=== PATIENT | female | born 1955 | race Caucasian/White ===

== ENCOUNTER 2018-08-12 05:55 | Inpatient (IN) | payer BC, MEDICARE ==
[2018-08-08 10:45] LABS: Basophils # (auto) 0.1 uL; Basophils % (auto) 1.4 % (0.0-2.0); Eosinophils # (auto) 0.1 uL; Eosinophils % (auto) 2.7 % (0.0-7.0); Hematocrit 41.8 % (36.0-46.0); Hemoglobin 14.1 g/dL (12.2-16.2); Lymphocytes # (auto) 1.7 uL; Lymphocytes % (auto) 33.1 % (10.0-50.0); Mean Corpuscular Hemoglobin 30.2 pg (28.0-32.0); Mean Corpuscular Hgb Conc. 33.7 g/dL (32.0-36.0); Mean Corpuscular Volume 89.5 fL (80.0-100.0); Monocytes # (auto) 0.4 uL; Monocytes % (auto) 7.6 % (0.0-12.0); Neutrophils # (auto) 2.8 uL; Neutrophils % (auto) 55.2 % (37.0-80.0); Platelet Count (auto) 244 10^3/uL (140-450); Red Blood Cells 4.67 10^6/uL (4.0-5.20)
[2018-08-08 10:49] LABS: Urine Bacteria FEW /hpf (None Seen); Urine Blood Negative /uL (Negative); Urine Specific Gravity 1.009 (1.001-1.035); Urine WBC 3 /hpf (0 - 5)
[2018-08-08 11:11] LABS: INR 0.92 (0.9-1.15); Partial Thromboplastin Time 28.2 sec (23.78-33.04); Prothrombin Time 9.9 sec (9.27-12.13)
[2018-08-08 11:47] LABS: Potassium 4.5 mmol/L (3.5-5.1)
[2018-08-08 12:00] LABS: Albumin 3.7 g/dL (3.4-5.0); BUN/Creatinine Ratio 20.5; Bilirubin, Total 0.3 mg/dL (0.2-1.0); Calcium 9.1 mg/dL (8.5-10.1); Total Protein 7.6 g/dL (6.4-8.2)
[~2018-08-12] VITALS: Ht 165.1 cm; Wt 101.6 kg
[2018-08-12] MEDS ORDERED: ceFAZolin 1GM/50ML 100 ML IV ONE (06:48)
[2018-08-12] MEDS ORDERED: TETRACAINE 1% INJ 2 ML VIAL IJ ONE ×2 (07:05→07:27)
[2018-08-12] MEDS ORDERED: LIDOCAINE 1% HCL (LOCAL ANESTH.) INJ 20ML MDV ONE (07:05)
[2018-08-12] MEDS ORDERED: DOXAPRAM HCL 20 MG/ML 20ML VIAL INJ IV ONE (07:05)
[2018-08-12] MEDS ORDERED: SUCCINYLCHOLINE CHLORIDE 20 MG/ML 10ML VIAL IV ONE (07:05)
[2018-08-12] MEDS ORDERED: MIDAZOLAM HCL 1MG/1ML-2 ML VIAL ONE ×2 (07:08→07:47)
[2018-08-12] MEDS ORDERED: MORPHINE SULF(PF) 0.5MG/ML 10ML VIAL ONE ×2 (07:08→07:12)
[2018-08-12] MEDS ORDERED: PROPOFOL 10 MG/ML 20 ML IV ONE ×3 (07:09→09:42)
[2018-08-12] MEDS ORDERED: ONDANSETRON HCL 4 MG/2 ML VIAL ONE (07:09)
[2018-08-12] MEDS ORDERED: SODIUM CHLORIDE LOCK 50 ML ONE (07:09)
[2018-08-12] MEDS ORDERED: BUPIVACAINE 0.25% INJ 50ML VIAL ONE (07:11)
[2018-08-12] MEDS ORDERED: KETOROLAC TROMETH 30 MG/ML 1ML VIAL ONE (07:13)
[2018-08-12] MEDS ORDERED: fentaNYL CITRATE 0 ML ONE (07:18)
[2018-08-12] MEDS ORDERED: fentaNYL CITRATE 100 MCG/2 ML VL ONE (07:19)
[2018-08-12] MEDS ORDERED: HYDROmorphone HCL 2 MG/ML VL IV PRN (08:45)
[2018-08-12] MEDS ORDERED: KETOROLAC TROMETH 30 MG/ML 1ML VIAL IV ONE (08:45)
[2018-08-12] MEDS ORDERED: METOCLOPRAMIDE HCL 5MG/ml INJ 2ml VIAL IV ONE (08:45)
[2018-08-12] MEDS ORDERED: NITROGLYCERIN 5MG/ML 10ML VIAL IV ONE (09:14)
[2018-08-12] MEDS ORDERED: TEMAZEPAM 15 MG CAP PO PRN (11:00)
[2018-08-12] MEDS ORDERED: ACETAMINOPHEN 325 MG TAB PO PRN (11:00)
[2018-08-12] MEDS ORDERED: LIDOCAINE W/ EPINEPHRINE 2% INJ 20ML VIAL ONE (11:02)
[2018-08-12] MEDS ORDERED: BUPIVACAINE HCL 50 ML ONE (11:02)
[2018-08-12] MEDS ORDERED: ENOXAPARIN SOD 40 MG/0.4 ML SYRINGE SC ONE (11:15)
[2018-08-12] MEDS: ceFAZolin 1GM/50ML 50 ML IV SCH ×3 (14:13→23:10)
[2018-08-12] MEDS: SODIUM CHLOR 0.9% PF (SALINE LOCK) 10ML VIAL/SYR IV SCH ×2 (14:30→21:41)
[2018-08-12] MEDS: HYDROmorphone HCL 2 MG/ML VL IV PRN ×2 (15:10→21:42)
[2018-08-12] MEDS: LACTATED RINGER'S 1,000 ML IV SCH (15:42)
[2018-08-12 17:17] VITALS: BP 112/63
[2018-08-12] MEDS: HYDROcodone-ACET 10/325MG TAB PO PRN (19:21)
[2018-08-12 20:00] VITALS: BP 125/65
[2018-08-12] MEDS: DOCUSATE SOD 100 MG CAP PO SCH (21:41)
[2018-08-12] MEDS: oxyCODONE ER 10 MG TAB PO SCH (21:41)
[2018-08-12 21:44] VITALS: BP 125/65
[2018-08-13] MEDS: HYDROmorphone HCL 2 MG/ML VL IV PRN ×6 (01:48→19:37)
[2018-08-13 04:47] VITALS: BP_SYST 109; BP_SYST 110; BP_DIAS 57; BP_DIAS 67
[2018-08-13] MEDS: SODIUM CHLOR 0.9% PF (SALINE LOCK) 10ML VIAL/SYR IV SCH ×3 (06:00→21:43)
[2018-08-13 06:16] LABS: Hematocrit 38.6 % (36.0-46.0); Hemoglobin 12.9 g/dL (12.2-16.2)
[2018-08-13] MEDS: LACTATED RINGER'S 1,000 ML IV SCH (06:58)
[2018-08-13 09:00] VITALS: BP 114/62
[2018-08-13] MEDS: ONDANSETRON HCL 4 MG/2 ML VIAL IV PRN ×2 (09:07→19:38)
[2018-08-13] MEDS: oxyCODONE ER 10 MG TAB PO SCH ×2 (09:33→21:43)
[2018-08-13] MEDS: ENOXAPARIN SOD 40 MG/0.4 ML SYRINGE SC SCH (09:33)
[2018-08-13] MEDS: DOCUSATE SOD 100 MG CAP PO SCH ×2 (09:34→21:43)
[2018-08-13 13:00] VITALS: BP 128/53
[2018-08-13 17:00] VITALS: BP 135/65
[2018-08-13 22:00] VITALS: BP 112/65
[2018-08-14] MEDS: HYDROmorphone HCL 2 MG/ML VL IV PRN ×2 (00:18→08:52)
[2018-08-14] MEDS: ONDANSETRON HCL 4 MG/2 ML VIAL IV PRN ×2 (00:18→08:52)
[2018-08-14] MEDS: LACTATED RINGER'S 1,000 ML IV SCH (02:50)
[2018-08-14 04:57] VITALS: BP 122/63
[2018-08-14] MEDS: SODIUM CHLOR 0.9% PF (SALINE LOCK) 10ML VIAL/SYR IV SCH ×2 (06:09→14:07)
[2018-08-14] MEDS: HYDROcodone-ACET 10/325MG TAB PO PRN (06:37)
[2018-08-14 09:00] VITALS: BP 154/65
[2018-08-14 09:14] LABS: Hemoglobin 11.7 g/dL (12.2-16.2)
[2018-08-14] MEDS ORDERED: HYDROmorphone HCL 2 MG/ML VL IV PRN (09:30)
[2018-08-14] MEDS: ENOXAPARIN SOD 40 MG/0.4 ML SYRINGE SC SCH (10:08)
[2018-08-14] MEDS: DOCUSATE SOD 100 MG CAP PO SCH (10:08)
[2018-08-14] MEDS: oxyCODONE ER 10 MG TAB PO SCH (10:08)
[2018-08-14 13:00] VITALS: BP 117/72
[2018-08-14 16:00] VITALS: BP 117/72
== END 2018-08-14 17:19 | disposition home health service (06) | DRG 470 ==
LOC: SUR 05:55 → WEST WING 05:56
PROVIDERS: ADMIT Orthopaedic Surgery; ATTEND Internal Medicine
PROC: 0MBN0ZZ Excision of Right Knee Bursa and Ligament, Open Approach (ICD-10-PCS; 2018-08-12)
PROC: 0SRC0L9 Replacement of Right Knee Joint with Medial Unicondylar Synthetic Substitute, Cemented, Open Approach (ICD-10-PCS; principal; 2018-08-12 07:36)
DX: M17.11 Unilateral primary osteoarthritis, right knee (principal); M70.41 Prepatellar bursitis, right knee; E66.01 Morbid (severe) obesity due to excess calories; Z68.37 Body mass index [BMI] 37.0-37.9, adult; Z98.51 Tubal ligation status
CPT/HCPCS: 36415; 73560; 80053; 81001; 85014; 85018; 85025; 85610; 85730; 86850; 86900; 86901; 97116; 97163; G0378; J0330; J0690; J1885; J2001; J2250; J2405; J2704; J3490